=== PATIENT | female | born 1985 | race Two or more races ===

== ENCOUNTER 2016-12-05 21:27 | Emergency (ER) | payer OTHER ==
[~2016-12-05] VITALS: Ht 165.1 cm; Wt 140.0 kg
[2016-12-05] MEDS ORDERED: ONDANSETRON ODT 4 MG ONE (22:13)
[2016-12-05] MEDS ORDERED: HYDROmorphone 2 MG/ML, 1ML ONE (22:13)
[2016-12-05] MEDS ORDERED: HYDROmorphone 1 MG/ML, 1ML IM ONE (22:30)
[2016-12-05] MEDS ORDERED: ONDANSETRON ODT 8 MG PO ONE (22:30)
[2016-12-05] MEDS ORDERED: ASPI-515 PO (22:30)
[2016-12-05] MEDS ORDERED: METOCLOPRAMIDE 5 MG/ML, 2ML ONE (23:54)
[2016-12-05 23:57] VITALS: BP 126/66
[2016-12-06] MEDS ORDERED: METOCLOPRAMIDE 5 MG/ML, 2ML IM ONE
[2016-12-06] MEDS ORDERED: CIPROFLOXACIN 500 MG TABLET PO ONE (00:30)
[2016-12-06] MEDS ORDERED: CIPROFLOXACIN 500 MG TABLET ONE (00:33)
[2016-12-06] MEDS ORDERED: CEFTRIAXONE 1,000 MG ONE (00:57)
[2016-12-06] MEDS ORDERED: CEFTRIAXONE 1,000 MG IM ONE (01:00)
== END 2016-12-06 01:31 | disposition home or self-care (01) ==
LOC: ED 23:59
DX: N39.0 Urinary tract infection, site not specified (principal); N83.291 Other ovarian cyst, right side; R10.30 Lower abdominal pain, unspecified
CPT/HCPCS: 36415; 76830; 81001; 84703; 85025; 87086; 96372; 99285; J0696; J1170; J2765; Q0162; 87077